=== PATIENT | male | born 1970 | race Caucasian/White ===

== ENCOUNTER 2022-10-05 02:21 | Emergency (ER) | payer MEDICAID ==
[~2022-10-05] VITALS: Ht 157.5 cm; Wt 82.4 kg
[2022-10-05 02:31] VITALS: O2SAT 100
[2022-10-05 03:09] LABS: BASOPHILS % 0.2 % (0.0-2.0); EOSINOPHILS % 0.7 % (0.0-5.0); HEMATOCRIT. 41.1 % (42.0-52.0); LYMPHOCYTES % 10.3 % (20.0-50.0); MEAN CORPUSCULAR HEMOGLOBIN 30.9 pg (28.0-32.0); MEAN CORPUSCULAR HGB CONC 34.1 g/dL (31.0-37.0); MEAN CORPUSCULAR VOLUME 90.7 fL (80.0-94.0); MEAN PLATELET VOLUME 7.8 fl (7.4-10.4); MONOCYTES % 6.2 % (2.0-8.0); NEUTROPHILS % 82.6 % (40.0-76.0); PLATELET 245 x1000/uL (130-400); RED BLOOD CELL COUNT 4.53 mill/uL (4.7-6.1); RED CELL DISTRIBUTION WIDTH 13.7 % (11.6-14.6)
[2022-10-05 03:18] LABS: CHLORIDE 107 mEq/L (98-107); INDEX HEMOLYSI 1 (1-3); INDEX ICTERIC 1 (1-4); INDEX LIPEMIC 1 (1-3); POTASSIUM 3.6 mEq/L (3.5-5.1); SODIUM 136 mEq/L (136-145)
[2022-10-05 03:27] LABS: ALANINE AMINOTRANSFERASE 47 IU/L (13-61); ALBUMIN 3.7 g/dL (3.4-5.0); ASPARTATE AMINOTRANSFERASE 24 IU/L (15-37); BILIRUBIN TOTAL 0.7 mg/dL (0.1-1.0); CALCIUM 8.7 mg/dL (8.5-10.1); CARBON DIOXIDE 26 mEq/L (21-32); GLUCOSE 148 mg/dL (70-105); PROTEIN TOTAL 7.1 g/dL (6.0-8.3); UREA NITROGEN BLOOD 17 mg/dL (7-21)
[2022-10-05] MEDS ORDERED: KETOROLAC 30MG/ML VIAL IM STA (05:11)
[2022-10-05 07:52] LABS: CLARITY URINE CLEAR (CLEAR); COLOR URINE YELLOW (YELLOW); GLUCOSE URINE NEGATIVE (NEGATIVE); KETONES URINE 1+ (NEGATIVE); LEUKOCYTE ESTERASE URINE NEGATIVE (NEGATIVE); NITRITE URINE NEGATIVE (NEGATIVE); OCCULT BLOOD URINE NEGATIVE (NEGATIVE); PROTEIN URINE NEGATIVE (NEGATIVE); SPECIFIC GRAVITY URINE 1.018 (1.005-1.030); UROBILINOGEN URINE 0.2 E.U./dL (0.2-1.0)
[2022-10-05 09:05] VITALS: BP 106/59; PULSE 75; RESP 20; TEMP 98.1
[2022-10-05] MEDS ORDERED: NAPR-681 MT (09:12)
[2022-10-05] MEDS ORDERED: CIPR-263 MT (09:12)
== END 2022-10-05 09:36 | disposition home or self-care (01) ==
LOC: ER 02:21
DX: R19.7 Diarrhea, unspecified (principal); E11.9 Type 2 diabetes mellitus without complications; I10 Essential (primary) hypertension
CPT/HCPCS: 80053; 81003; 83690; 85025; 36415; 74176; 93005; 96372; 99285; J1885; Z7610 ×3

== ENCOUNTER 2024-03-24 23:16 | Emergency (ER) | payer MEDICAID ==
[~2024-03-24] VITALS: Ht 170.2 cm; Wt 84.0 kg
[~2024-03-24 23:16] MED LIST: CIPR-263 MT; NAPR-681 MT
[2024-03-24 23:30] VITALS: O2SAT 99
[2024-03-25 00:06] VITALS: BP 135/80; PULSE 65; RESP 18; TEMP 98.4; O2SAT 100
[2024-03-25 01:10] LABS: CHLORIDE 106 mEq/L (98-107); POTASSIUM 3.8 mEq/L (3.5-5.1); SODIUM 140 mEq/L (136-145)
[2024-03-25 01:11] LABS: CARBON DIOXIDE 26 mEq/L (21-32)
[2024-03-25 01:12] LABS: CALCIUM 9.3 mg/dL (8.7-10.4)
[2024-03-25 01:16] LABS: CREATININE 0.8 mg/dL (0.6-1.3); GLUCOSE 159 mg/dL (70-105); UREA NITROGEN BLOOD 12 mg/dL (9-23)
[2024-03-25 01:18] LABS: ALANINE AMINOTRANSFERASE 28 IU/L (10-49); ALBUMIN 4.5 g/dL (3.2-4.8); ASPARTATE AMINOTRANSFERASE 25 IU/L (<34); BILIRUBIN DIRECT 0.2 mg/dL (<=3.0)
[2024-03-25 01:19] LABS: BILIRUBIN TOTAL 0.8 mg/dL (0.1-1.0); PROTEIN TOTAL 6.7 g/dL (6.0-8.3)
[2024-03-25 01:20] LABS: BASOPHILS % 0.2 % (0.0-2.0); EOSINOPHILS % 0.2 % (0.0-5.0); HEMATOCRIT. 40.3 % (42.0-52.0); HEMOGLOBIN. 13.3 g/dL (14.0-18.0); LYMPHOCYTES % 9.7 % (20.0-50.0); MEAN CORPUSCULAR HEMOGLOBIN 30.5 pg (28.0-32.0); MEAN CORPUSCULAR HGB CONC 33.1 g/dL (31.0-37.0); MEAN CORPUSCULAR VOLUME 92.3 fL (80.0-94.0); MEAN PLATELET VOLUME 8.2 fl (7.4-10.4); MONOCYTES % 7.8 % (2.0-8.0); NEUTROPHILS % 82.1 % (40.0-76.0); PLATELET 249 x1000/uL (130-400); RED BLOOD CELL COUNT 4.37 mill/uL (4.7-6.1); RED CELL DISTRIBUTION WIDTH 13.5 % (11.6-14.6); WHITE BLOOD COUNT 11.2 x1000/uL (4.5-11.0)
[2024-03-25] MEDS: SODIUM CHLORIDE 0.9% 1,000 ML IV ONE (03:54)
[2024-03-25] MEDS: KETOROLAC 15MG/ML VIAL IV NR (03:55)
[2024-03-25] MEDS: KETOROLAC 15MG/ML VIAL IV ONE (03:55)
[2024-03-25 04:51] LABS: TROPONIN I HIGH SENSITIVITY < 4 ng/L (3.0-53)
[2024-03-25] MEDS ORDERED: MAG355OR21 MT (04:57)
[2024-03-25] MEDS ORDERED: ACET-2708 MT (04:57)
[2024-03-25] MEDS: ACETAMINOPHEN 325MG TABLET PO ONE (06:19)
== END 2024-03-25 06:12 | disposition home or self-care (01) ==
LOC: ER 23:16
DX: R10.11 Right upper quadrant pain (principal); E11.9 Type 2 diabetes mellitus without complications; Z79.1 Long term (current) use of non-steroidal anti-inflammatories (NSAID)
CPT/HCPCS: 99285; 80076; 80048; 83690; 85025; 84484; 36415; 76705; 93005; 96361; 96374; J1885; J7030; Z7610 ×2

== ENCOUNTER 2024-05-23 23:56 | Emergency (ER) | payer MEDICAID ==
[~2024-05-23] VITALS: Ht 170.2 cm; Wt 104.0 kg
[~2024-05-23 23:56] MED LIST changes: +ACET-2708 MT; +MAG355OR21 MT
[2024-05-24 00:27] VITALS: TEMP 36.8; O2SAT 99
[2024-05-24 00:30] VITALS: O2SAT 100
[2024-05-24 02:33] LABS: BASOPHILS % 0.7 % (0.0-2.0); EOSINOPHILS % 0.7 % (0.0-5.0); HEMATOCRIT. 38.4 % (42.0-52.0); HEMOGLOBIN. 12.8 g/dL (14.0-18.0); LYMPHOCYTES % 13.1 % (20.0-50.0); MEAN CORPUSCULAR HEMOGLOBIN 29.3 pg (28.0-32.0); MEAN CORPUSCULAR HGB CONC 33.3 g/dL (31.0-37.0); MEAN PLATELET VOLUME 7.8 fl (7.4-10.4); MONOCYTES % 5.9 % (2.0-8.0); NEUTROPHILS % 79.6 % (40.0-76.0); PLATELET 246 x1000/uL (130-400); RED BLOOD CELL COUNT 4.36 mill/uL (4.7-6.1); RED CELL DISTRIBUTION WIDTH 13.8 % (11.6-14.6); WHITE BLOOD COUNT 7.6 x1000/uL (4.5-11.0)
[2024-05-24 02:41] LABS: CHLORIDE 107 mEq/L (98-107); POTASSIUM 3.8 mEq/L (3.5-5.1); SODIUM 140 mEq/L (136-145)
[2024-05-24 02:42] LABS: CALCIUM 8.9 mg/dL (8.7-10.4); CARBON DIOXIDE 26 mEq/L (21-32)
[2024-05-24 02:47] LABS: CREATININE 0.7 mg/dL (0.6-1.3); GLUCOSE 167 mg/dL (70-105)
[2024-05-24 02:48] LABS: UREA NITROGEN BLOOD 20 mg/dL (9-23)
[2024-05-24 02:49] LABS: ALANINE AMINOTRANSFERASE 19 IU/L (10-49); ALBUMIN 4.1 g/dL (3.2-4.8); ASPARTATE AMINOTRANSFERASE 21 IU/L (<34); BILIRUBIN DIRECT 0.1 mg/dL (<=3.0)
[2024-05-24 02:50] LABS: BILIRUBIN TOTAL 0.6 mg/dL (0.1-1.0); PROTEIN TOTAL 6.7 g/dL (6.0-8.3)
[2024-05-24] MEDS: MAGNESIUM/ALUMINUM HYDROXIDE/SIMETHICONE 30ML UDC PO STA (03:12)
[2024-05-24 03:13] VITALS: BP 132/83; PULSE 80; RESP 16
[2024-05-24] MEDS: FAMOTIDINE 20MG TABLET PO ONE (03:13)
[2024-05-24] MEDS: KETOROLAC 15MG/ML VIAL IM ONE (03:13)
[2024-05-24 03:43] LABS: ETHANOL BLOOD < 10 mg/dL (<10)
[2024-05-24] MEDS ORDERED: FAMO-135 MT (04:28)
[2024-05-24] MEDS ORDERED: ONDA-239 PO (04:28)
== END 2024-05-24 04:48 | disposition home or self-care (01) ==
LOC: ER 23:56
DX: K29.70 Gastritis, unspecified, without bleeding (principal); E11.9 Type 2 diabetes mellitus without complications; Z79.1 Long term (current) use of non-steroidal anti-inflammatories (NSAID)
CPT/HCPCS: 99283; 80076; 80048; 80320; 83690; 85025; 36415; 96372; J1885; G0480